=== PATIENT | female | born 1985 | race Caucasian/White ===

== ENCOUNTER → 2021-03-03 07:23 | Outpatient (CLI) | payer OTHER, SELFPAY ==
[2021-03-03 12:16] LABS: Influenza Control Positive
[2021-03-03 19:39] LABS: SARS-CoV-2 RNA PCR Negative
== END ==
PROVIDERS: PCP Internal Medicine; Visit Provider Nurse Practitioner
DX: R05 Cough (principal); Z20.822 Contact with and (suspected) exposure to COVID-19
CPT/HCPCS: 87804; C9803; U0003; U0005

== ENCOUNTER 2021-05-09 14:15 | Outpatient (RCR) | payer OTHER, SELFPAY ==
--- NOTE | 2021-04-24 12:46 | PTOPEVAL ---
Thank you for referring Hope Michelle to [facility].? The patient is scheduled to be seen for therapy? 2 x/week for 8 weeks. Please review, sign, date and return this plan of care OLIVE. I agree with and certify that the following plan of care is medically necessary. Referring Physician Date Attending Provider: Niels Gruber, Diagnosis radiculopathy, cervical Onset 2 months Additional Evaluation Detail history of OA right shoulder with therapy. Does not performing her previous HEP. Subjective Information She has been having pain in Query Text:As Reported By Patient/ the left shoulder. She has Family increased neck and shoulder pain with sleeping. Denies limitations with lifting, ADL's, driving or recreational activities as related to her neck. Reports her shoulder limits her ability to perform reaching, overhead, or daily task. She c /o radiating numbness and tingling into all fingers. She does not performing fitness routine. Recreational activities consist of fishing. Limitation with fishing with the throwing motion or reeling in a heavier fish. 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 Pain Assessment Self Report Pain Assessment Right Arm(s) Reported Pain Level 8 Pain Description Numbness,Radiating,Tingling Pain Frequency Chronic,Continuous Lowest Pain Intensity 3 Greatest Pain Intensity 8 Pain Aggravating Factors Exercise/Activity,Lifting, Prolonged Position Left Arm(s) Reported Pain Level 0 Pain Description Numbness,Radiating,Tingling Pain Frequency Continuous,Intermittent Lowest Pain Intensity 0 Greatest Pain Intensity 7 Pain Aggravating Factors Exercise/Activity,Lifting, Prolonged Position Neck Reported Pain Level 0 Pain Description Radiating,Tightness Pain Radiation Left Arm,Right Arm Pain Frequency Intermittent Greatest Pain Intensity 5 Pain Aggravating Factors Prol
[2021-05-09 14:17] VITALS: BP_SYST 170
--- NOTE | 2021-05-09 15:58 | PTOPEVAL ---
Thank you for referring Hope Michelle to [facility].? Hope has attended 5 therapy visits with an increase of her right UE symptoms. Recommend she follow up with her doctor at this time due to increase and progression of her symptoms. Will hold chart open for possible therapy visits after MRI and doctor's follow up visit. Please review, sign, date and return this plan of care OLIVE. I agree with and certify that the following plan of care is medically necessary. Referring Physician Date Attending Provider: Niels Gruber, DO Physical Therapy progress note Diagnosis radiculopathy, cervical Onset 2 months Additional Evaluation Detail She arrives to therapy with hand resting on head, due to pain. Subjective Information She continues to c/o severe Query Text:As Reported By Patient/ left shoulder pain at all Family times. Denies any pain of neck or left UE/shoulder region. 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 She must maintain hand above head with all activities including driving. She reports only mild c/o radiating numbness and tingling into right hand in the morning. States when her UE is down she has increased elbow pain and scapular pain. She sleeps with the arm overhead or on the right side. Pain improved with sleeping. She has not been working for the past 2 wks due to shoulder pain. Pain Assessment Self Report Pain Assessment Right Arm(s) Reported Pain Level 9 Pain Description Pulling,Sharp,Shooting Pain Frequency Chronic,Continuous Lowest Pain Intensity 5 Greatest Pain Intensity 10 Pain Aggravating Factors ADL's,Exercise/Activity, Lifting,Prolonged Position Pain Behaviors Anxious Left Arm(s) Reported Pain Level 0 Lowest Pain Intensity 0 Greatest Pain Intensity 0 Neck Reported Pain Level 0 Lowest Pain Intensity 0 Greatest Pain Intensity 0 Cervical and Lumbar ROM Cervical ROM Cervical Flexion
--- NOTE | 2021-06-01 08:15 | PCPTNOTE ---
Admitting Provider: Attending Provider: Niels Gruber DO Patient:Hope Michelle Date of :1985 Discharge Note Patient has not returned for any further treatments since 05/09/2021, therefore she will be discharged at this time. Patient?s initial visit was on 04/24/2021 10:00 and she had a total of 5 visits. Limited progress noted towards goals on recent update on 05/09/21. Thank you for referring this patient to [facility]. Please review, sign, date and return this discharge summary OLIVE. I have been updated about the patient's current status and I agree with discharge from the above service at this time. Referring Physician Date
== END 2021-06-01 16:45 | disposition home or self-care (01) ==
LOC: ANHPT 14:15
PROVIDERS: PCP Internal Medicine; Visit Provider Internal Medicine
DX: M54.12 Radiculopathy, cervical region (principal)
CPT/HCPCS: 97014; 97110; 97140; 97162; G0283

== ENCOUNTER 2021-05-09 15:25 | Outpatient (CLI) | payer OTHER, SELFPAY ==
--- NOTE | ~2021-05-09 | MR_ITS ---
EXAMINATION: MR cervical spine wo con DATE: 05/09/2021 16:16 INDICATION: Cervical radiculopathy. TECHNIQUE: Magnetic resonance imaging (MRI) of the cervical spine was performed without intravenous c ontrast. Sequences included sagittal T2-weighted FSE, sagittal STIR FSE, sagittal T1-weighted FSE, ax ial MERGE, and axial T2-weighted FSE. COMPARISON: Cervical spine radiographs 11/27/2017 FINDINGS: There is mild kyphosis of cervical spine. Vertebral body heights are normal. Intervertebral disc heights are normal. The spinal cord signal intensity is normal. The following disc levels are s pecifically discussed: C2-C3: The disc does not extend beyond the endplate margin. There is no uncovertebral joint osteoarth ritis. There is mild bilateral facet joint osteoarthritis. There is no neural foraminal stenosis. The re is no central canal stenosis. C3-C4: The disc does not extend beyond the endplate margin. There is no uncovertebral joint osteoarth ritis. There is mild bilateral facet joint osteoarthritis. There is no neural foraminal stenosis. The re is no central canal stenosis. C4-C5: There is a right central extrusion. There is no uncovertebral joint osteoarthritis. There is m ild bilateral facet joint osteoarthritis. There is no neural foraminal stenosis. There is mild centra l canal stenosis. C5-C6: There is a left central and foraminal zone extrusion. There is mild left uncovertebral joint o steoarthritis. There is no facet joint osteoarthritis. There is mild left neural foraminal stenosis. There is mild central canal stenosis. C6-C7: There is a right central and foraminal zone extrusion. There is no uncovertebral joint osteoar thritis. There is no facet joint osteoarthritis. There is moderate right neural foraminal stenosis. T here is mild central canal stenosis with asymmetric stenosis of right lateral recess. C7-T1: The disc does not extend beyond the endplate margin. There is no uncovertebral joint osteoarth ritis. There is mild bilateral facet joint osteoarthritis. There is mild left neural foraminal stenos is. There is no central canal stenosis. IMPRESSION: 1. Mild cervical spondylosis. Of note, an extrusion at C6-C7 causes moderate right neural foraminal s tenosis and asymmetric stenosis of right lateral recess. Reviewed, dictated and finalized at location A. IMPRESSION: 1. Mild cervical spondylosis. Of note, an extrusion at C6-C7 causes moderate ri ght neural foraminal stenosis and asymmetric stenosis of right lateral recess.
== END 2021-05-09 15:26 | disposition home or self-care (01) ==
LOC: ANHIMG 15:27
PROVIDERS: PCP Internal Medicine; Visit Provider Nurse Practitioner
DX: M47.22 Other spondylosis with radiculopathy, cervical region (principal)
CPT/HCPCS: 72141; 97110

== ENCOUNTER 2022-03-26 12:17 | Outpatient (CLI) | payer OTHER, SELFPAY ==
[2022-03-26 12:58] LABS: Hematocrit 40.5 % (37.0-47.0); Hemoglobin 13.4 g/dL (12.0-15.0)
== END 2022-03-26 12:18 | disposition home or self-care (01) ==
LOC: ANHSURGERY 12:23
PROVIDERS: PCP Internal Medicine; Visit Provider Student in an Organized Health Care Education/Training Program
DX: N92.0 Excessive and frequent menstruation with regular cycle (principal); Z01.818 Encounter for other preprocedural examination
CPT/HCPCS: 36415; 85014; 85018

== ENCOUNTER 2022-03-29 00:58 | Day surgery (SDC) | payer OTHER, SELFPAY ==
--- NOTE | 2022-03-26 10:11 | SUR.PREOP ---
Report to the Outpatient Waiting Room, entrance under the green pavilion located off [facility], at time _1100_ on date _03/29/22_. OR Time: _1:00pm___. - You and your visitor will be asked a series of questions to screen for COVID 19 for your protection. - Only one visitor is allowed at this time. - The patient visitor is requested to leave or wait in car when not with patient. - A mask is required within the hospital. Patients may have clear liquids (water, carbonated beverages, clear teas, apple juice) until 3 hours prior to surgery with a maximum of 20 ounces. - No food from midnight until time of surgery before 10:00 am - Infants may have breast milk until 4 hours before surgery, formula 6 hours prior to surgery. - Children will be allowed to drink immediately following surgery. If applicable, please bring a bottle or sippy cup to assist with drinking. Juice, water, soda, and popsicles are readily available. For infants on formula, please bring formula the day of surgery. Pacifiers are allowed. Take the following medications with a SIP of water the morning of surgery: n/a Medications to discontinue per physician n/a Date to take last dose n/a Please no make-up, nail cambodian, hairspray, perfume, deodorant, or body powder the day of surgery. No jewelry (including any body piercings) or valuables the day of surgery, leave them at home. Please take a shower or bath the night before, or the morning of, surgery with an antibacterial soap. Wear comfortable, loose fitting clothing. Children are encouraged to wear pajamas. - Jewelry must be removed prior to entering the operating room. Rings and piercings that are not removed may be cut off. - The hospital will not accept responsibility for valuables. - Please leave all valuables, including medications, at home the day of surgery. If you are going home after surgery, a licensed hack driver must drive you home. - NO public transportation without another adult. - We recommend that an adult stay with you for 24 hours following discharge. - We also recommend that you do not drive, make important decision, drink alcoholic beverages, or take any drugs that were not prescribed by your health care provider for at least 24 hours after your discharge time. For Pediatric surgeries, we recommend two adults accompany the child home (only one inside the building at this time). Follow any additional instructions given to you from your surgeon. If you or anyone in your household have experienced Covid symptoms in the past week, please notify your surgeon or the nurse liaison at the phone number below for possible testing. Telephone instructions given to __patient___and asked if any additional questions and then verbalized understanding. Patient advised to call surgeon office or pre surgery nurse liaison [phone] if any additional questions.
--- NOTE | 2022-03-29 10:43 | PM.IMHP ---
H&P: HPI History of Present Illness Date/Time: 03/29/22 10:43 Chief Complaint: abnormal uterine bleeding Narrative: 36 yo who presents for hysteroscopy, D&C, endometrial ablation for AUB. Pt has been having heavy menses. She had an IUD in place previously and continued to bleed through. She has had a bilateral tubal ligation for contraception. Pt elects for endometrial ablation. Review of Systems Cardiovascular: Cardiovascular: Denies chest pain, Denies leg edema, Denies palpitations, Denies dyspnea and Denies dyspnea on exertion Respiratory: Respiratory: Denies cough, Denies dyspnea and Denies dyspnea on exertion Gastrointestinal: Gastrointestinal: Denies abdominal pain, Denies constipation, Denies diarrhea, Denies nausea and Denies vomiting Genitourinary: Genitourinary: Denies hematuria, Denies urinary frequency, Denies dysuria, Denies pelvic pain, Denies urinary incontinence and Denies vaginal discharge Neurologic: Reports system reviewed and no additional complaints, except as documented Psychiatric: Psychiatric: Reports no additional psychiatric complaints Endocrine: Endocrine: Denies palpitations PMFSH Past Medical History Medical History Broken arm Right COVID-19 Ovarian cyst Left ovary @ age 12 Surgical History Surgical History H/O tubal ligation Family History Family History Mother Asthma Father Family history of alcoholism Sibling Family history of alcoholism Social History Social History Smoking packs per day: 1 Smoking cigarettes per day: 20.0 Years smoked: 27 Smoking pack-years: 27.00 Smoking status: Current every day smoker Tobacco type: cigarettes Alcohol intake: current Living arrangements: with family Spiritual care concerns: No Meds Home Medications and Allergies Home Medications Medication Instructions Recorded Confirmed Type No Home Medications 03/26/22 03/26/22 History Allergies Allergy/AdvReac Type Severity Reaction Status Date / Time Penicillins Allergy Unknown Vomiting Verified 03/02/21 10:32 Exam Const: General: no acute distress Eyes: EOM: EOMs intact bilaterally Neck: Neck: supple Thyroid: thyroid normal Chest: Breast/axilla inspection: normal inspection of the breasts Breast/axilla palpation: normal palpation of the breasts, normal palpation of the axillae and no axillary lymphadenopathy Resp: Effort & Inspection: normal respiratory effort Auscultation: clear to auscultation bilaterally Cardio: Rate: regular rate Rhythm: regular rhythm GI: Inspection: non-distended GI Palp: Yes Soft to palpation, No Tenderness to palpation present (GI) and No Guarding due to palpation present (GI) Auscultation: normal bowel sounds : General: No bladder normal to palpation External Female Exam: normal external appearance Speculum Exam - Vagina: normal vaginal discharge and No vaginal bleeding Speculum Exam - Cervix: nontender Bimanual exam- vagina & uterus: No bladder normal to palpation and No Cervical tenderness present OB/external & speculum: No vaginal bleeding Skin: General skin exam: normal color and no rashes or lesions noted Neuro: Cognition (Neuro): normal cognition Speech: normal speech Extrem: General: normal to inspection and no edema Psych: Mental Status: mental status grossly normal Affect: normal affect Assessment and Plan Assessment and plan (1) Abnormal uterine bleeding (AUB): Code(s): N93.9 - Abnormal uterine and vaginal bleeding, unspecified Status: Acute Assessment and Plan: 36 yo with AUB failed medical management plan for hysteroscopy, D&C, endometrial ablation
--- NOTE | 2022-03-29 10:46 | WPDHPUPDATE1 ---
History and Physical Update Update Date/Time: 03/29/22 10:46 History and Physical has been reviewed, including an updated exam of the patient. There are NO changes in the patient's condition. Risks, benefits, and alternatives have been discussed and questions answered. Patient agrees to proceed with procedure.
[2022-03-29] MEDS: ACETAMINOPHEN 500 MG TABLET 1000 MG PO (11:15)
[2022-03-29 11:27] VITALS: BP 107/53; PULSE 72; RESP 16; TEMP 36.8; O2SAT 99
[2022-03-29] MEDS: LACTATED RINGERS 1,000 ML 30 ML IV CONT (11:45)
--- NOTE | 2022-03-29 12:14 | WPDANESEPPF ---
Anes - Initial Pre Proc Eval Procedure: Operation Date: 03/29/22 13:00 Proposed Procedures p Hysteroscopy Dilation and Curettage with Kaley Endometrial Ablation - Durga Melendez MD Date/Time: 03/29/22 12:14 Surgeon: Durga Melendez MD Pre Op Diagnosis: Heavy Bleeding Patient Data Age: 36 Gender: F Height: 1.68 m Weight: 57 kg Last Vital Signs Temp 36.8 C 03/29/22 11:27 Pulse 72 03/29/22 11:27 Resp 16 03/29/22 11:27 BP 107/53 L 03/29/22 11:27 Pulse Ox 99 03/29/22 11:27 Allergies Allergy/AdvReac Type Severity Reaction Status Date / Time Penicillins Allergy Unknown Vomiting Verified 03/29/22 11:11 Home Medications Medication Instructions Recorded Confirmed Type No Home Medications 03/26/22 03/29/22 History Patient hx anesthesia problems: none Family hx anesthesia problems: none Results Review: All pre-operative results and documents have been reviewed as part of the pre-operative evaluation. [facility] Past Medical History Medical History Anxiety Depression Surgical History Surgical History H/O tubal ligation Family History Family History Mother Asthma Father Family history of alcoholism Sibling Family history of alcoholism Social History Social History Smoking packs per day: 1 Smoking cigarettes per day: 20.0 Years smoked: 27 Smoking pack-years: 27.00 Smoking status: Current every day smoker Tobacco type: cigarettes Alcohol intake: current Living arrangements: with family Spiritual care concerns: No Anes - Eval Final PreProcedure Day of Procedure 03/29/22 12:14 Patient weight: normal Heart: regular rate and rhythm Lungs: decreased breath sounds Airway: Mallampati scale class II Neurological: alert and oriented Last oral intake: >/= 8 hours ASA classification: III Emergent: no Anesthetic plan: proceed Anesthesia type and monitoring: general GIVS and standard monitoring Results Review: All pre-operative results and documents have been reviewed as part of the pre-operative evaluation. Informed Consent: The patient's anesthetic plan and its attendant risks and benefits were discussed with the patient/family/POA. Questions were solicited and answers provided to the satisfaction of the patient/family/POA.
[2022-03-29] MEDS: LIDOCAINE HCL 1% PF 30 ML VIAL INFILTRATE (13:10)
[2022-03-29 13:16] VITALS: BP 110/70; PULSE 75; RESP 16
--- NOTE | 2022-03-29 13:16 | W.PM.PROC2 ---
Procedure Note - Detailed Date of Procedure 03/29/22 Pre-op Diagnosis Heavy Bleeding Post-op Diagnosis Same Procedure Performed paracervical block hysteroscopy dilation & curettage endometrial ablation Surgeon Durga Melendez MD Anesthesia MAC Indications abnormal uterine bleeding Findings normal appearing intrauterine cavity. Normal tubal ostia bilaterally Description of Procedure Hope Michelle presents for hysteroscopy, D&C, endometrial ablation for AUB. She was counseled as to the indications, risks, benefits, and alternatives to surgery, with the risks including bleeding, infection, damage to surrounding organs, VTE, and complications of anesthesia. Her verbal and written consent was obtained. PROCEDURE: The patient was taken to the OR and general anesthesia induced. She was prepped and draped in Tejas stirrups with support of the back and bilateral lower extremities. I/O catheterization performed of the bladder. The above findings were noted. Infiltration with 1% lidocaine at the 3 and 9 o'clock cervical positions was performed. A single tooth tenaculum was placed on the anterior lip of the cervix. The uterus sounded to 8 cm. The cervix was dilated with sequential Lois dilators. Hysteroscopy, using a normal saline medium, was performed and showed the above findings. Sharp uterine curettage was then performed and tissue placed on Telfa. The Kaley device was set to a depth of 5 cm. The device was inserted into the uterus and deployed. Good fit was reassured by the device indicator. The cervical balloon was insufflated to ensure a good seal. Uterine integrity test was performed by the Kaley device and was successful. The device was then activated. The entire ablation procedure lasted 120 seconds. The cervical balloon was desufflated and the device was removed from the uterus. The hysteroscope was re-introduced to ensure adequate tissue ablation. The tenaculum was removed and hemostasis was observed. The patient tolerated the procedure well. Sponge, lap, and needle counts were correct. The fluid deficit was noted to be 100 mL. The patient was taken to the recovery room in stable condition. Estimated Blood Loss 50 Urine Output 25 Drains No Packing No Pathology Yes (endometrial curettings ) Complications No immediate complications Condition Stable Disposition PACU
[2022-03-29 13:45] VITALS: BP 120/72; PULSE 72; RESP 16
[2022-03-29] MEDS: oxyCODONE HCL (*CRX) 5 MG TAB IR PO (14:10)
[2022-03-29 14:15] VITALS: BP 113/70; PULSE 70; RESP 16
[2022-03-29 14:30] VITALS: BP 117/72; PULSE 68; RESP 20
== END 2022-03-29 14:37 | disposition home or self-care (01) ==
PROVIDERS: PCP Internal Medicine; Visit Provider Student in an Organized Health Care Education/Training Program
PROC: 0U5B8ZZ Destruction of Endometrium, Via Natural or Artificial Opening Endoscopic (ICD-10-PCS; CPT 58563; principal; 2022-03-29 13:00)
DX: N93.9 Abnormal uterine and vaginal bleeding, unspecified (principal); N71.1 Chronic inflammatory disease of uterus; F17.210 Nicotine dependence, cigarettes, uncomplicated
CPT/HCPCS: 58563; 88305; A9270; J1100; J1885; J2250; J2405; J2704; J3010; J7120

== ENCOUNTER 2022-09-05 12:36 | Outpatient (CLI) | payer OTHER, SELFPAY ==
[2022-09-05 18:41] LABS: Basophils Absolute Auto 0.1 K/mm3 (0.0-0.1); Basophils Percent Auto 0.6 % (0.2-1.2); Eosinophils Absolute Auto 0.2 K/mm3 (0-0.3); Eosinophils Percent Auto 1.7 % (0-4.4); Hematocrit 49.3 % (37.0-47.0); Hemoglobin 15.8 g/dL (12.0-15.0); Immature Granulocyte Absolute 0.03 K/mm3 (0.00-0.031); Immature Granulocyte Percent A 0.3 % (0-0.5); Lymphocytes Absolute Auto 1.87 K/mm3 (0.9-3.2); Lymphocytes Percent Auto 18.9 % (18.3-44.2); Mean Corpuscular Hemoglobin 32.4 pg (26-34); Mean Corpuscular Volume 101.2 fl (80-100); Mean Platelet Volume 9.9 fl (7.4-10.4); Monocytes Absolute Auto 0.9 K/mm3 (0.1-0.6); Monocytes Percent Auto 8.9 % (2.6-8.5); Neutrophils Absolute Auto 6.9 K/mm3 (1.3-6.7); Neutrophils Percent Auto 69.6 % (45.5-73.1); Platelet Count Result 260 k/mm3 (150-375); Red Blood Count 4.87 M/mm3 (4.2-5.4); Red Cell Distribution Width 14.2 % (11.5-14.5); White Blood Count 9.9 K/mm3 (4.5-10.0)
[2022-09-05 18:46] LABS: Alanine Aminotransferase 20 U/L (6-35); Albumin Level 4.6 g/dL (3.5-5.1); Alkaline Phosphatase 58 U/L (38-126); Anion Gap 10 mmol/L (8-16); Aspartate Amino Transferase 30 U/L (14-36); Bilirubin,Total 0.6 mg/dL (0.2-1.3); Blood Urea Nitrogen 14 mg/dL (7-17); Calcium 9.1 mg/dL (8.4-10.2); Carbon Dioxide 24 mmol/L (22-30); Chloride 103 mmol/L (98-107); Estimated Glomerular Filt Rate > 60; Glucose 95 mg/dL (65-110); Potassium 4.5 mmol/L (3.4-5.0); Sodium 137 mmol/L (137-145)
== END 2022-09-05 12:37 | disposition home or self-care (01) ==
LOC: ANHGOSHLAB 12:40
PROVIDERS: PCP Internal Medicine; Visit Provider Clinical Nurse Specialist
DX: Z13.29 Encounter for screening for other suspected endocrine disorder (principal); E55.9 Vitamin D deficiency, unspecified; F41.9 Anxiety disorder, unspecified
CPT/HCPCS: 36415; 80053; 82306; 84443; 85025

== ENCOUNTER 2022-11-09 06:40 | Outpatient (CLI) | payer OTHER, SELFPAY ==
--- NOTE | ~2022-11-09 | MR_ITS ---
EXAMINATION: MR abdomen wo/w con DATE: 11/09/2022 08:19 INDICATION: Pancreatic lesion. TECHNIQUE: Magnetic resonance imaging (MRI) of the abdomen was performed without and with 11 mL Multi Sera intravenous contrast. COMPARISON: CT abdomen and pelvis 05/08/2012 FINDINGS: The liver, gallbladder, spleen, pancreas, adrenal glands, and right kidney are normal. There is an 8 mm cyst in left kidney. There are no dilated loops of bowel. There are no pathologically enlarged lym ph nodes. There is no free intraperitoneal fluid. IMPRESSION: 1. Normal pancreas. Reviewed, dictated and finalized at location A. OWS SERVER SUPPORT TECHNICIAN IMPRESSION: 1. Normal pancreas.
== END 2022-11-09 06:41 | disposition home or self-care (01) ==
PROVIDERS: PCP Internal Medicine; Visit Provider Nurse Practitioner
DX: K86.9 Disease of pancreas, unspecified (principal)
CPT/HCPCS: 74183; A9577

== ENCOUNTER 2023-11-02 13:02 | Emergency (ER) | payer OTHER, SELFPAY ==
[2023-11-02 13:03] VITALS: BP 125/90; PULSE 88; RESP 16; TEMP 36.8; O2SAT 97
--- NOTE | 2023-11-02 13:43 | ED.GENADULT ---
HPI - General Adult General Chief complaint: Skin/Abscess/Foreign Body Stated complaint: rash Time Seen by Provider: 11/02/23 13:18 History of Present Illness HPI narrative: 37-year-old female presenting to the emergency department for evaluation of a persistent itching rash. Patient was evaluated at the urgent care and was diagnosed with an allergic reaction. Patient was given a steroid injection a left hip and she was also started on prednisone and famotidine. Patient states she is still having persistent itching. Patient has an excoriated rash on her chest arms and upper back. Patient has no prior history of allergic reactions and patient states she has had no new medications, no new detergents no perfumes. Related Data Allergies Allergy/AdvReac Type Severity Reaction Status Date / Time Penicillins Allergy Unknown Vomiting Verified 09/05/22 11:34 Review of Systems Review of Systems: All systems reviewed & are unremarkable except as noted in HPI and below PMFSH Past Medical History Medical History Anxiety Depression Pancreatic lesion Pulmonary nodule Tobacco abuse Surgical History Surgical History H/O tubal ligation Family History Family History Mother Asthma Father Family history of alcoholism Sibling Family history of alcoholism Social History Social History Smoking packs per day: 1 Smoking cigarettes per day: 20.0 Years smoked: 27 Smoking pack-years: 27.00 Smoking status: Current every day smoker Tobacco type: cigarettes Alcohol intake: current Living arrangements: with family Spiritual care concerns: No Exam Narrative: APPEARANCE: Well appearing, no pain, no distress, well-nourished. HEAD: normocephalic, atraumatic. EYES: PERRLA/EOMI, conjunctivae clear. NOSE: Normal no drainage EARS:TMS clear with good light reflex. THROAT: Pharynx clear, no exudate. NECK: Supple. No adenopathy, no masses. RESPIRATORY: Airway patent, respirations nonlabored. Clear to auscultation bilaterally, no rales, rhonchi, wheezing. CARDIOVASCULAR: Regular rate and rhythm without murmurs rubs or gallops. ABDOMINAL: Soft, nontender, nondistended, normal bowel sounds MUSCULOSKELETAL: Moves all extremities. Strength/ROM intact, No edema, No calf tenderness. NEURO: Alert. Cranial nerves II through XII intact. grossly intact SKIN: excoriated rash on arms chest back and legs. No rash at the belt line or intravenous areas. No vesicular rash. Course Course Emergency Course: 37-year-old female presenting ED for evaluation of persistent rash. patient will be restarted on a Medrol Dosepak. Patient was encouraged to take Claritin or Zyrtec for an antihistamine. Patient is also advised to try Vaseline and to quit scratching to the point of excoriation. Vital Signs Vital signs: Vital Signs Temperature 98.2 F 11/02/23 13:03 Pulse Rate 88 11/02/23 13:03 Respiratory Rate 16 11/02/23 13:03 Blood Pressure 125/90 11/02/23 13:03 Pulse Oximetry 97 11/02/23 13:03 Temperature 98.2 F 11/02/23 13:03 Pulse Rate 88 11/02/23 13:03 Respiratory Rate 16 11/02/23 13:03 Blood Pressure 125/90 11/02/23 13:03 Pulse Oximetry 97 11/02/23 13:03 Medical Decision Making Vital Signs Vital Signs: Vital Signs Temperature 98.2 F 11/02/23 13:03 Pulse Rate 88 11/02/23 13:03 Respiratory Rate 16 11/02/23 13:03 Blood Pressure 125/90 11/02/23 13:03 Pulse Oximetry 97 11/02/23 13:03 Temperature 98.2 F 11/02/23 13:03 Pulse Rate 88 11/02/23 13:03 Respiratory Rate 16 11/02/23 13:03 Blood Pressure 125/90 11/02/23 13:03 Pulse Oximetry 97 11/02/23 13:03 Discharge Plan Discharge Clinical Impression: Allergic reaction
== END 2023-11-02 14:00 | disposition home or self-care (01) ==
PROVIDERS: Emergency Provider Emergency Medicine; PCP Internal Medicine
DX: T78.40XA Allergy, unspecified, initial encounter (principal); R21 Rash and other nonspecific skin eruption; F17.210 Nicotine dependence, cigarettes, uncomplicated; F41.9 Anxiety disorder, unspecified; F32.A Depression, unspecified; X58.XXXA Exposure to other specified factors, initial encounter
CPT/HCPCS: 99283

== ENCOUNTER 2024-02-17 01:39 | Emergency (ER) | payer OTHER, SELFPAY ==
[2024-02-17] VITALS (7 sets, daily range): BP systolic 118–127; BP diastolic 60–77; PULSE 89–107; RESP 12–18; TEMP 36.8–37.3; O2SAT 98–100
--- NOTE | ~2024-02-17 | XR_ITS ---
EXAMINATION: XR chest 2V DATE: 02/17/2024 02:22 INDICATION: Chest pain. Cough. Fever. TECHNIQUE: Frontal and lateral views of the chest were obtained. COMPARISON: None. FINDINGS: There are airspace opacities in left lower lung zone. There is mild scarring at the lung ap ices. No pleural effusion or pneumothorax. The heart size is normal. IMPRESSION: 1. Airspace opacities in left lower lung zone, consistent with pneumonia. Reviewed, dictated and finalized at location A.
--- NOTE | 2024-02-17 01:41 | ECG_ITS ---
Measurements Intervals [place] Rate: 106 P: 75 NM: 97 QRS: 101 QRSD: 91 T: -25 QT: 319 QTc: 424 Interpretive Statements SINUS TACHYCARDIA WITH SHORT NM INTERVAL SUSPECT ARM LEAD REVERSAL NONSPECIFIC ST & T-WAVE ABNORMALITY NO PREVIOUS ECG AVAILABLE FOR COMPARISON Electronically Signed On 02-17-2024 13:01:45 CDT by Ochoa Lam M.D.
[2024-02-17 02:08] LABS: Basophils Percent Auto 0.2 % (0.2-1.2); Eosinophils Absolute Auto 0.1 K/mm3 (0-0.3); Eosinophils Percent Auto 0.3 % (0-4.4); Hematocrit 41.6 % (37.0-47.0); Immature Granulocyte Absolute 0.07 K/mm3 (0.00-0.031); Immature Granulocyte Percent A 0.4 % (0-0.5); Lymphocytes Percent Auto 5.2 % (18.3-44.2); Mean Corpuscular HGB Conc 33.7 g/dl (32-36); Mean Corpuscular Hemoglobin 31.1 pg (26-34); Mean Corpuscular Volume 92.4 fl (80-100); Monocytes Absolute Auto 0.9 K/mm3 (0.1-0.6); Monocytes Percent Auto 4.5 % (2.6-8.5); Neutrophils Absolute Auto 17.2 K/mm3 (1.3-6.7); Neutrophils Percent Auto 89.4 % (45.5-73.1); Platelet Count Result 246 k/mm3 (150-375); Red Cell Distribution Width 13.7 % (11.5-14.5); White Blood Count 19.2 K/mm3 (4.5-10.0)
[2024-02-17 02:19] LABS: Prothrombin Time 13.8 Seconds (11.1-14.7)
[2024-02-17 02:40] LABS: Alanine Aminotransferase 14 U/L (6-35); Albumin Level 3.9 g/dL (3.5-5.1); Alkaline Phosphatase 99 U/L (38-126); Anion Gap 10 mmol/L (4-12); Aspartate Amino Transferase 25 U/L (14-36); Bilirubin,Total 1.2 mg/dL (0.2-1.3); Blood Urea Nitrogen 15 mg/dL (7-17); Calcium 8.8 mg/dL (8.4-10.2); Carbon Dioxide 21 mmol/L (22-30); Chloride 103 mmol/L (98-107); Estimated CRCL calculation 87 ml/min; Estimated Glomerular Filt Rate > 60; Glucose 184 mg/dL (65-110); Lipase 37 U/L (23-300); Potassium 3.4 mmol/L (3.4-5.0); Sodium 134 mmol/L (137-145)
[2024-02-17 02:43] LABS: Influenza A QL RT-PCR Negative (Negative); Influenza B QL RT-PCR Negative (Negative); RSV RNA, RT-PCR Negative (Negative); SARS-CoV-2 RNA PCR Negative (Negative)
[2024-02-17 02:52] LABS: Troponin I < 0.012 ng/mL (0.000-0.034)
--- NOTE | 2024-02-17 04:25 | ECG_ITS ---
Measurements Intervals [place] Rate: 94 P: 6 TX: 105 QRS: 97 QRSD: 88 T: 15 QT: 338 QTc: 424 Interpretive Statements SINUS RHYTHM WITH SHORT TX INTERVAL BORDERLINE RIGHT AXIS DEVIATION [QRS AXIS > 90] COMPARED TO ECG 02/17/2024 01:53:37 SINUS RHYTHM NOW PRESENT COMPARED WITH EARLIER TODAY WITH T-WAVE ABNORMALITY HAS IMPROVED Electronically Signed On 02-17-2024 13:05:43 CDT by Ochoa Lam M.D.
[2024-02-17] MEDS: guaiFENesin/DEXTROMETHORPHAN 10 ML UDC PO (04:49)
[2024-02-17] MEDS: DOXYCYCLINE HYCLATE 100 MG TABLET PO (04:49)
--- NOTE | 2024-02-17 05:25 | ED.GENADULT ---
HPI - General Adult General Chief complaint: Chest Pain Stated complaint: cp, cough, headache, fever Time Seen by Provider: 02/17/24 03:27 History of Present Illness HPI narrative: This is a 38-year-old female presenting ED with chief complaint of shortness of breath. Patient also had a cough and fevers of 100.6. Patient has a history of pneumonia. She has chest pain in center of her chest when she coughs. It is worse with palpation. Patient denies nausea vomiting or diarrhea. No abdominal pain. No lower extremity edema. Related Data Allergies Allergy/AdvReac Type Severity Reaction Status Date / Time Penicillins Allergy Unknown Vomiting Verified 09/05/22 11:34 [facility] Past Medical History Medical History Anxiety Depression Pancreatic lesion Pulmonary nodule Tobacco abuse Surgical History Surgical History H/O tubal ligation Family History Family History Mother Asthma Father Family history of alcoholism Sibling Family history of alcoholism Social History Social History Smoking packs per day: 1 Smoking cigarettes per day: 20.0 Years smoked: 27 Smoking pack-years: 27.00 Smoking status: Current every day smoker Tobacco type: cigarettes Alcohol intake: current Living arrangements: with family Spiritual care concerns: No Exam Narrative: APPEARANCE: No apparent distress. Head: atraumatic. EYES: EOMI, NOSE: Atraumatic NECK: Trachea midline RESPIRATORY: Tachypneic, scattered rhonchi in the left lower CARDIOVASCULAR: RRR, no peripheral edema ABDOMINAL: Non-distended soft nontender MUSCULOSKELETAl: No obvious deformities NEURO: Alert. Moving 4/4 extremities SKIN:: Warm, dry. Normal color PSYCHIATRIC: Normal affect Course Vital Signs Vital signs: Vital Signs Temperature 98.3 F 02/17/24 01:41 Pulse Rate 107 H 02/17/24 01:41 Respiratory Rate 18 02/17/24 01:41 Blood Pressure 119/60 02/17/24 01:41 Pulse Oximetry 100 02/17/24 01:41 Oxygen Delivery Room Air 02/17/24 01:41 Temperature 99.1 F 02/17/24 03:37 Pulse Rate 98 02/17/24 04:49 Respiratory Rate 15 02/17/24 04:49 Blood Pressure 127/75 02/17/24 04:49 Pulse Oximetry 98 02/17/24 04:49 Oxygen Delivery Room Air 02/17/24 03:35 Medical Decision Making MDM Narrative Medical decision making narrative: -Course: 38-year-old female presenting with fevers cough shortness of breath. Chest x-ray shows left lower lobe pneumonia. White count 19.2. Vital signs stable and not requiring any supplemental oxygen. Given first dose of Augmentin and doxycycline. Patient candidate for outpatient management. Patient has follow-up with her primary care physician tomorrow. Given return precautions. 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 Labs reviewed within normal limits. Viral swabs negative Chest x-ray showed a left lower lobe pneumonia Independent EKG interpretation: Rhythm [sinus], Rate [94], [place] -[normal], ID -[normal], QRS [narrow], QTC [normal], T waves -[negative for concerning inversions], ST Segments - [Negative for concerning elevations] Final interpretations: [Normal Sinus Rhythm] -Interventions: Augmentin, doxycycline, Robitussin -Shared decision making / Disposition: Discharge -RX Augmentin, doxycycline Vital Signs Vital Signs: Vital Signs Temperature 98.3 F 02/17/24 01:41 Pulse Rate 107 H 02/17/24 01:41 Respiratory Rate 18 02/17/24 01:41 Blood Pressure 119/60 02/17/24 01:41 Pulse Oximetry 100 02/17/24 01:41 Oxygen Delivery Room Air
[2024-02-17 05:28] LABS: Troponin I < 0.012 ng/mL (0.000-0.034)
== END 2024-02-17 06:32 | disposition home or self-care (01) ==
PROVIDERS: Emergency Provider Emergency Medicine; PCP Internal Medicine
DX: J18.9 Pneumonia, unspecified organism (principal); Z20.822 Contact with and (suspected) exposure to COVID-19; F17.210 Nicotine dependence, cigarettes, uncomplicated; R00.0 Tachycardia, unspecified; R94.31 Abnormal electrocardiogram [ECG] [EKG]
CPT/HCPCS: 36415; 71046; 80053; 83690; 84484; 85025; 85610; 85730; 87637; 93005; 99284; A9270

== ENCOUNTER 2024-03-30 17:00 | Outpatient (CLI) | payer OTHER, SELFPAY ==
--- NOTE | ~2024-03-30 | CT_ITS ---
CT Scan of the Chest without Contrast: Clinical Indication: Solitary pulmonary nodule Technique: Contiguous sections were acquired throughout the chest without intravenous contrast. Dose reduction technique was used on this scan by utilizing automated exposure control and iterative recon struction technique. The dose-length product (DLP) was 69.96 mGy-cm. Findings: There is no evidence of any significant mediastinal, hilar or axillary lymphadenopathy. The mediastin al soft tissues appear normal. There is no evidence of pleural or pericardial effusion. There is biapical scarring. Left upper lobe pulmonary cyst present. Images through the upper abdomen reveal no abnormalities. Impression: Biapical scarring. Left upper lobe pulmonary cyst. No suspicious pulmonary nodule seen. Reviewed, dictated and finalized at location . Impression: Biapical scarring. Left upper lobe pulmonary cyst. No suspicious pulmonary nodu le seen.
== END 2024-03-30 17:01 | disposition home or self-care (01) ==
LOC: ANHIMG 17:00
PROVIDERS: PCP Internal Medicine; Visit Provider Nurse Practitioner
DX: R91.1 Solitary pulmonary nodule (principal)
CPT/HCPCS: 71250

== ENCOUNTER 2024-05-24 08:03 | Outpatient (CLI) | payer OTHER, SELFPAY ==
--- NOTE | ~2024-05-24 | MR_ITS ---
EXAMINATION: MR cervical spine wo con DATE: 05/24/2024 10:28 INDICATION: Cervical radiculopathy. TECHNIQUE: Magnetic resonance imaging (MRI) of the cervical spine was performed without intravenous c ontrast. COMPARISON: Cervical spine MRI 05/09/2021 FINDINGS: There is 3 degrees levocurvature of cervical spine. Vertebral body heights are normal. Ther e is mildly decreased disc height at C5-C6 and C6-C7. The spinal cord signal intensity is normal. The following disc levels are specifically discussed: C2-C3: The disc does not extend beyond the endplate margin. There is no uncovertebral joint osteoarth ritis. There is moderate right and mild left facet joint osteoarthritis. There is no neural foraminal stenosis. There is no central canal stenosis. C3-C4: There is a central extrusion. There is no uncovertebral joint osteoarthritis. There is mild bi lateral facet joint osteoarthritis. There is no neural foraminal stenosis. There is mild central sri l stenosis. C4-C5: There is a central extrusion. There is mild bilateral uncovertebral joint osteoarthritis. Ther e is severe bilateral facet joint osteoarthritis. There is mild bilateral neural foraminal stenosis. There is mild central canal stenosis. There is moderate stenosis of right lateral recess. C5-C6: The disc is bulging and has an annular fissure. There is moderate right and severe left uncove rtebral joint osteoarthritis. There is severe bilateral facet joint osteoarthritis. There is mild bo ateral neural foraminal stenosis. There is mild central canal stenosis. C6-C7: The disc is bulging. There is severe bilateral uncovertebral joint osteoarthritis. There is mo derate bilateral facet joint osteoarthritis. There is mild bilateral neural foraminal stenosis. There is mild central canal stenosis. C7-T1: The disc does not extend beyond the endplate margin. There is mild right uncovertebral joint o steoarthritis. There is mild right and mild left facet joint osteoarthritis. There is mild bilateral neural foraminal stenosis. There is no central canal stenosis. IMPRESSION: 1. Mild cervical spondylosis, worsened from 05/09/2021. Reviewed, dictated and finalized at location E.
== END 2024-05-24 08:04 | disposition home or self-care (01) ==
LOC: ANHIMG 09:35
PROVIDERS: PCP Internal Medicine; Visit Provider Clinical Nurse Specialist
DX: M43.02 Spondylolysis, cervical region (principal)
CPT/HCPCS: 72141

== ENCOUNTER 2025-04-20 15:04 | Outpatient (CLI) | payer OTHER, SELFPAY ==
--- NOTE | ~2025-04-20 | XR_ITS ---
XR knee RT 3V 04/20/2025 15:21 Indication: Right knee pain for 3 months Procedure: 3 views right knee Comparison: No prior studies for comparison. Findings: No fracture, subluxation or dislocation. No significant joint effusion. No foreign bodies. Impression: 1: No significant bone or joint abnormality. Reviewed, dictated and finalized at location A. Impression: 1: No significant bone or joint abnormality.
--- OUTSIDE RECORDS SUMMARY | 2025-04-20 15:09 | XMS_ITS | Clinical Summary ---
Author Organization [facility] Address [address] [place] [phone] Phone Care Team Providers Care Stencil Cutter Name Role Phone Niels Gruber Primary Care Provider Allergies Active Allergy Reactions Criticality Noted Date Comments Penicillins Nausea and Vomiting Low 08/24/2012 Medications HYDROcodone-sen taminophen (NORCO) 5-325 mg Oral tablet Take 1 Tab by mouth every 4 hours as needed. Active oxyCODONE-aceta minophen (PERCOCET) 5-325 mg Oral tablet Take 1 Tab by mouth every 6 hours as needed for Pain, Moderate. 20 Tab None 08/25/2012 Active predniSONE (DELTASONE) 10 mg tablet Take 4 Tablets (40 mg) by mouth daily/ decrease dose by 1 tablet every three days. 30 Tablet 03/10/2017 Active Active Problems Problem Noted Date Diagnosed Date Skin ulcer of right knee, limited to breakdown o f skin 03/08/2017 Pneumonia 03/08/2017 Tobacco use 03/08/2017 Abscess of right lower extremity 03/08/2017 Cervicitis 08/25/2012 Pelvic pain in female 08/25/2012 Abscess of right knee Cellulitis of right lower extremity Failure of outpatient treatment Gastritis Abnormal CT of the chest Family History Medical History Relation Name Comments Healthy Father Asthma Mother Relation Name Status Comments Father Alive Mother Alive Social History Tobacco Use Types Packs/Day Years Used Date Smoking Tobacco: Every Day Cigarettes Tobacco Cessation:Ready to Q uit: No Alcohol Use Standard Drinks/Week Comments No 0 (1 standard drink = 0.6 oz pur e alcohol) occ. Comments No Sex and Gender Information Value Date Recorded Sex Assigned at Female 11/07/2024 1:[address] Legal Sex Female 3:[address] Gender Identity Female 11/07/2024 1:[address] Sexual Orientation Straight 11/07/2024 1: [address] Last Filed Vital Signs Vital Sign Reading Time Taken Comments Blood Pressure 129/82 04/27/2022 8:57 AM CDT Pulse 66 04/27/2022 8:57 AM CDT Temperature 36.8 C (98.2 F) 04/27/2022 8:57 AM CDT Respiratory Rate 16 04/27/2022 8:57 AM CDT Oxygen Saturation 98% 04/27/2022 8:57 AM CDT Inhaled Oxygen Concentration - - Weight 56.2 kg (124 lb) 04/27/2022 8:26 AM CDT Height 167.6 cm (5' 6) 04/27/2022 8:26 AM CDT Body Mass Index 20.01 04/27/2022 8:26 AM CDT Plan of Treatment Health Maintenance Due Date Last Done Comments DTAP/TDAP/TD VACCINES (1 - Tdap) 2002 HEPATITIS B VACCINES (1 of 3 - 19+ 3-dose series) 2002 HPV/Cotest (21-29) 2004 CERVICAL CANCER SCREENING 2013 HPV/Cotest (30-65) 2013 PAP SMEAR 2013 BREAST CANCER SCREENING 2023 INFLUENZA VACCINE (#1) 2024 HPV VACCINES Aged Out No longer eligi ble based on patient's age to complete this topic Insurance [employer] [place] [facility] [employer] (INTERNAL) [facility] Advance Directives For more information, please contact: [phone] * Full Code (Latest Code Status on File) Date Activated Date Inactivated Comments 03/08/2017 4:39 AM 03/10/2017 7:09 PM Care Teams Stencil Cutter Relationship Specialty Start Date End Date Niels Gruber DO PCP - General Internal Medicine 03/08/17
--- OUTSIDE RECORDS SUMMARY | 2025-04-20 15:09 | XMS_ITS | Encounter Summary ---
Author Organization [facility] Address [address] [place] [address] Care Team Providers Care Assurance Manager Insurance Name Role Phone Niels Gruber DO Primary Care Provider [phone] Ozzy Valdez MD Unavailable [phone] Encounter Details Date Type Department Care Team (Late st Contact Info) Description 09/02/2024 Telephone [facility] [place] [facility] [address] [facility] [address] [place] [address] Ozzy Valdez MD [address] [facility] [address] [place] [address] Social History Tobacco Use Types Packs/Day Years Used Date Smoking Tobacco: Every Day Cigarettes Alcohol Use Standard Drinks/Week Comments Yes 0 (1 standard drink = 0.6 oz pur e alcohol) occasional AUDIT-C Answer Date Recorded Q1: How often do you have a drink containing alc ohol? Monthly or less 09/01/2024 Q2: How many drinks containi ng alcohol do you have on a typical day when you are drinking? 1 or 2 09/01/2024 Q3: How often do you have si x or more drinks on one occasion? Never 09/01/2024 Hunger Vital Sign Answer Date Recorded Within the past 12 months, y ou worried that your food would run out before you got the money to buy more. Never true 09/01/20 24 Within the past 12 months, t he food you bought just didn't last and you didn't have money to get more. Never true 09/01/2024 Comments No Sex and Gender Information Value Date Recorded Sex Assigned at Not on file Legal Sex Female 3:05 AM MECHANICS HANDYMAN Gender Identity Female 09/06/2024 12:51 PM CDT Sexual Orientation Straight 09/06/2024 12 :51 PM CDT documented as of this encounter Plan of Treatment Not on file documented as of this encounter Goals Goal Patient Goal Type Associated Problems Recent Progress Patient-Stated? Author CCM Chronic Pain Care Plan Chronic Care Management Worsening( 1:01 PM MECHANICS HANDYMAN) No Padmini Yarbrough, RN Note: Problem: Chronic Pain Goals: 1. Minimize further functional decline 2. Maximize quality of life 3. Control pain Strategies: - Activity/exercise program recommendation - Conservative stepwise pain medicine strategy with multi-disciplinary approach - Recommend healthy lifestyle strategies and compensatory methods as needed documented as of this encounter Visit Diagnoses Not on filedocumented in this encounter Care Teams Assurance Manager Insurance Relationship Specialty Start Date End Date Niels Gruber DO PCP - General 03/01/21 Ozzy Valdez MD [address] [place] [address] Consulting Physician Pain Management 12/21/24 documented as of this encounter
--- OUTSIDE RECORDS SUMMARY | 2025-04-20 15:09 | XMS_ITS | Patient Health Record ---
Author Organization [facility] Address [address] [place] [address] Care Team Providers Care Jboss Architect Name Role Phone Jeramie Philip Primary Care Provider [phone] Allergies Allergen (clinical drug ingredient) Drug/Non Drug Allergy documented on EMR Reaction Allergy Type Onset Date Status Penicillin Unknown Drug Allergy Active Reason For Referral No Information Medications Medication SIG (Take, Route, Frequency, Duration) Notes Start Date End Date Status Remeron 15 MG 1 tablet at bedtime Orally Once a day for 30 day(s) 12/25/2022 Active traZODone HCl Not-Ta eben Wellbutrin XL 300 MG 1 tablet Orally Onc e a day for 30 days Active Vistaril 25 MG 1 capsule twice a da y as needed orally twice daily as needed for 30 days Active Social History Tobacco Use: Social History Observation Description Date Details (start date - stop date) Current Smoker NA - NA Sex Assigned At : Social History Observation Description Sex Assigned At Female Dont use, Tobacco Use/Smoking Question Answer Notes Are you a current smoker Problems Problem Type SNOMED Code ICD Code Onset Dates Problem Status W/U Status Risk Notes Problem Major depression (666254527) Major depression (F32.9) Active confirmed Problem Alcohol abuse (48513585) AA (alcohol abuse) (F10.10) Active confirmed Plan Of Treatment Pending Test Test Name Order Date 12 Panel Urine Drug Screen 12/04/2022 Insurance Providers Payer Name Payer Address Payer Phone Subscriber Number Group Number Insured Name Patient Relationship to Insured Coverage Start Date Coverage End Date [facility] [address] [place] [phone] [id number] Hope Michelle Self - patient is the insured 3 Medications Administered Medication Instructions Date of Administration Dosage Notes Vivitrol 12/04/2022 380 mg [facility]. Vivitrol 01/02/2023 380 mg [facility]. Medical (General) History Surgical History Surgery Date(Month/Year) Tubal ligation Cyst removed from left ovary Endometrial Ablation
--- OUTSIDE RECORDS SUMMARY | 2025-04-20 15:10 | XMS_ITS | Encounter Summary ---
Author Organization [facility] Address [address] [place] [address] Care Team Providers Care Ethylbenzene Converter Helper Name Role Phone Niels Gruber DO Primary Care Provider Encounter Details Date Type Department Care Team (Latest Contact Info) Description 07/29/2001 Inpatient Historical [facility] PATIENT IN A BED Jose Maria Melendez MD [address] [address] Premature rupture of membranes in , delivered (Primary Dx) Social History Tobacco Use Types Packs/Day Years Used Date Smoking Tobacco: Never Assessed Comments Unknown Sex and Gender Information Value Date Recorded Sex Assigned at Female 11/07/2024 1:55 AM HEALTH ADMINISTRATOR Legal Sex Female 3:15 AM HEALTH ADMINISTRATOR Gender Identity Female 11/07/2024 1:55 AM HEALTH ADMINISTRATOR Sexual Orientation Straight 11/07/2024 1: 55 AM HEALTH ADMINISTRATOR documented as of this encounter Plan of Treatment Not on file documented as of this encounter Visit Diagnoses Diagnosis Premature rupture of membranes in , delivered- Primary documented in this encounter Additional Health Concerns Infection Onset Date Last Indicated Resolved Time MRSA Comment:Resolved per Type and Duration of Precautions Recommended for Selected Infections and Conditions document 2023 update 03/08/2017 03/08/2017 08/04/20 24 11:04 AM CDT documented as of this encounter Care Teams Ethylbenzene Converter Helper Relationship Specialty Start Date End Date Niels Gruber DO PCP - General Internal Medicine 03/08/17 documented as of this encounter
--- OUTSIDE RECORDS SUMMARY | 2025-04-20 15:10 | XMS_ITS | Encounter Summary ---
Author Organization [facility] Address [address] [place] [address] Care Team Providers Care Enterprise Account Manager Name Role Phone Niels Grbuer DO Primary Care Provider Encounter Details Date Type Department Care Team (Late st Contact Info) Description 04/10/2005 Outpatient Historical [facility] EMERGENCY RO[facility] Gisella Foley MD [address] [place] [address] [place] [address] Er, Authorized P NO ADDRESS ON FILE BROKEN TOOTH (Primary Dx) Social History Tobacco Use Types Packs/Day Years Used Date Smoking Tobacco: Never Assessed Comments Unknown Sex and Gender Information Value Date Recorded Sex Assigned at Female 11/07/2024 1:55 AM NURSE INFORMATICS EDUCATOR Legal Sex Female 3:15 AM NURSE INFORMATICS EDUCATOR Gender Identity Female 11/07/2024 1:55 AM NURSE INFORMATICS EDUCATOR Sexual Orientation Straight 11/07/2024 1: 55 AM NURSE INFORMATICS EDUCATOR documented as of this encounter Plan of Treatment Not on file documented as of this encounter Visit Diagnoses Diagnosis Open wound of tooth (broken) (fractured) (due to trauma), without mention of complication- Primary documented in this encounter Additional Health Concerns Infection Onset Date Last Indicated Resolved Time MRSA Comment:Resolved per Type and Duration of Precautions Recommended for Selected Infections and Conditions document 2023 update 03/08/2017 03/08/2017 08/04/20 24 11:04 AM CDT documented as of this encounter Care Teams Enterprise Account Manager Relationship Specialty Start Date End Date Niels Gruber DO PCP - General Internal Medicine 03/08/17 documented as of this encounter
--- OUTSIDE RECORDS SUMMARY | 2025-04-20 15:10 | XMS_ITS | Encounter Summary ---
Author Organization [facility] Address [address] [place] [address] Care Team Providers Care Skills Instructor Name Role Phone Niels Gruber DO Primary Care Provider Encounter Details Date Type Department Care Team (Late st Contact Info) Description 11/24/2003 Outpatient Historical [facility] Maternal and Ground [address] [place] [address] Bebeto Nolan MD [address] [place] [address] [place] [address] Social History Tobacco Use Types Packs/Day Years Used Date Smoking Tobacco: Never Assessed Comments Unknown Sex and Gender Information Value Date Recorded Sex Assigned at Female 11/07/2024 1:55 AM CAMELID FIBER SORTER Legal Sex Female 3:15 AM CAMELID FIBER SORTER Gender Identity Female 11/07/2024 1:55 AM CAMELID FIBER SORTER Sexual Orientation Straight 11/07/2024 1: 55 AM CAMELID FIBER SORTER documented as of this encounter Plan of Treatment Not on file documented as of this encounter Visit Diagnoses Not on filedocumented in this encounter Additional Health Concerns Infection Onset Date Last Indicated Resolved Time MRSA Comment:Resolved per Type and Duration of Precautions Recommended for Selected Infections and Conditions document 2023 update 03/08/2017 03/08/2017 08/04/20 24 11:04 AM CDT documented as of this encounter Care Teams Skills Instructor Relationship Specialty Start Date End Date Niels Gruber DO PCP - General Internal Medicine 03/08/17 documented as of this encounter
--- OUTSIDE RECORDS SUMMARY | 2025-04-20 15:10 | XMS_ITS | Clinical Summary ---
Author Organization [facility] al Address [address] [place] [address] Care Team Providers Care Car Pick Up Driver Name Role Phone Niels Gruber DO Primary Care Provider [phone] Ozzy Valdez MD Unavailable [phone] [phone] Allergies Active Allergy Reactions Criticality Noted Date Comments Penicillins Vomiting,Nausea And Vomiting,Other (See comments),Unknown Low 08/24/2012 Reaction: Medications multivitamin capsule Take 1 capsule by mouth daily Active gabapentin (NEURONTIN) 300 mg capsule Take 1 capsule (300 mg total) by mouth 3 (three) times a day Start with 1 tab qhs x1wk, increase 1 tab BID x1wk, then 1 tab TID 90 capsule 1 4 Active Additional Information Patient not taking.Reported on 12/21/2024 meloxicam (MOBIC) 15 mg tablet TAKE 1 TABLET BY MOUTH DAILY WITH BREAKFAST 30 tablet 5 Active tiZANidine (ZANAFLEX) 4 mg tabletIndicatio ns:Muscle Spasm TAKE 1 TABLET (4 MG TOTAL) BY MOUTH NIGHTLY NEEDED FOR MUSCLE SPASMS 30 tablet 5 Active Active Problems Problem Noted Date Diagnosed Date Cervical radiculopathy 09/09/[address] of the chest 09/01/2024 Alcohol abuse 09/01/2024 Failure of outpatient treatment 09/01/2024 Gastritis 09/01/2024 Major depression 09/01/2024 Cellulitis of right lower extremity 03/08/2017 Pneumonia 03/08/2017 Skin ulcer of right knee, limited to breakdown o f skin 03/08/2017 Tobacco use 03/08/2017 Cervicitis 08/25/2012 Pelvic pain in female 08/25/2012 Surgical History Surgery Date Site/Laterality Comments TUBAL LIGATION 11/18/2020 - 11/17/2021 N/A OVARIAN CYST REMOVAL Medical History Medical History Date Comments Depression Anxiety Social History Tobacco Use Types Packs/Day Years Used Date Smoking Tobacco: Every Day Cigarettes Tobacco Cessation:Ready to Q uit: Not Asked; Counseling Given: Not Answered Alcohol Use Standard Drinks/Week Comments Yes 0 (1 standard drink = 0.6 oz pur e alcohol) occasional AUDIT-C Answer Date Recorded Q1: How often do you have a drink containing alc ohol? Monthly or less 12/08/2024 Q2: How many drinks containi ng alcohol do you have on a typical day when you are drinking? 1 or 2 12/08/2024 Q3: How often do you have si x or more drinks on one occasion? Never 12/08/2024 Hunger Vital Sign Answer Date Recorded Within [...] on file Legal Sex Female 3:05 AM QUARTER SUPERVISOR Gender Identity Female 09/06/2024 12:51 PM CDT Sexual Orientation Straight 09/06/2024 12 :51 PM CDT Obstetrics History Last Filed Vital Signs Vital Sign Reading Time Taken Comments Blood Pressure 116/53 12/21/2024 9:50 AM QUARTER SUPERVISOR Pulse 85 12/21/2024 9:50 AM QUARTER SUPERVISOR Temperature 36.4 C (97.5 F) 12/08/2024 12:52 PM QUARTER SUPERVISOR Respiratory Rate 10 12/08/2024 12:5 2 PM QUARTER SUPERVISOR Oxygen Saturation 100% 12/21/2024 9:50 AM QUARTER SUPERVISOR Inhaled Oxygen Concentration - - Weight 58.4 kg (128 lb 12.8 oz) 12/21/2024 9:50 AM QUARTER SUPERVISOR Height 170.2 cm (5' 7) 12/21/2024 9:50 AM QUARTER SUPERVISOR Body Mass Index 20.17 12/21/2024 9:50 AM QUARTER SUPERVISOR Plan of Treatment Health Maintenance Due Date Last Done Comments Breast Cancer Screening-Mammogram 1983 Cervical Cancer Screening 1983 Depression Screening 1983 Hepatitis C Screening 1983 Varicella Vaccines (1 of 2 - 13+ 2-dose series) 1996 Regular Well Visit/Exam 18-64 2001 Pneumococcal vaccine <65 (1 of 2 - PCV) 2002 DTaP/Tdap/Td Vaccine (5 - Tdap) 04/11/2005 04/10/2005, 12/18/1999, 03/16/1999, Additional history exists Influenza Vaccine (Season Ended) 2025 Hepatitis B Screening Completed 03/16/1999 HPV Vaccines Aged Out No longer eligi ble based on patient's age to complete this topic Goals Goal Patient Goal Type Associated Problems Recent Progress Patient-Stated? Author CCM Chronic Pain Care Plan Chronic Care Management Worsening( 1:01 PM QUARTER SUPERVISOR) No Padmini Yarbrough, RN Note: Problem: Chronic Pain Goals: 1. Minimize further functional decline 2. Maximize quality of life 3. Control pain Strategies: - Activity/exercise program recommendation - Conservative stepwise pain medicine strategy with multi-disciplinary approach - Recommend healthy lifestyle strategies and compensatory methods as needed Insurance [facility] Care Teams Car Pick Up Driver Relationship Specialty Start Date End Date Niels Gruber DO PCP - General 03/01/21 Ozzy Valdez MD [address] [place] [address] Consulting Physician Pain Management 12/21/24
--- OUTSIDE RECORDS SUMMARY | 2025-04-20 15:10 | XMS_ITS | Encounter Summary ---
Author Organization [facility] Address [address] [place] [address] Care Team Providers Care Debt Counselor Name Role Phone Niels Gruber DO Primary Care Provider Encounter Details Date Type Department Care Team (Late st Contact Info) Description 12/28/2005 Outpatient Historical [facility] Irvin Sheth MD [facility] [place] [address] Er, Authorized P NO ADDRESS ON FILE DENTAL CARIES NEC (Primary Dx) Social History Tobacco Use Types Packs/Day Years Used Date Smoking Tobacco: Never Assessed Comments Unknown Sex and Gender Information Value Date Recorded Sex Assigned at Female 11/07/2024 1:55 AM MILL WORK Legal Sex Female 3:15 AM MILL WORK Gender Identity Female 11/07/2024 1:55 AM MILL WORK Sexual Orientation Straight 11/07/2024 1: 55 AM MILL WORK documented as of this encounter Plan of Treatment Not on file documented as of this encounter Visit Diagnoses Diagnosis Other dental caries- Primary documented in this encounter Additional Health Concerns Infection Onset Date Last Indicated Resolved Time MRSA Comment:Resolved per Type and Duration of Precautions Recommended for Selected Infections and Conditions document 2023 update 03/08/2017 03/08/2017 08/04/20 24 11:04 AM CDT documented as of this encounter Care Teams Debt Counselor Relationship Specialty Start Date End Date Niels Gruber DO PCP - General Internal Medicine 03/08/17 documented as of this encounter
--- OUTSIDE RECORDS SUMMARY | 2025-04-20 15:10 | XMS_ITS | Encounter Summary ---
Author Organization [facility] Address [address] [place] [address] Care Team Providers Care Pharmacist Aide Name Role Phone Niels Gruber DO Primary Care Provider Encounter Details Date Type Department Care Team (Late st Contact Info) Description 01/24/2006 Outpatient Historical [facility] You Santiago DO [address] [place] [address] Er, Authorized P NO ADDRESS ON FILE Inflammatory Conditions of Jaw (Primary Dx) Social History Tobacco Use Types Packs/Day Years Used Date Smoking Tobacco: Never Assessed Comments Unknown Sex and Gender Information Value Date Recorded Sex Assigned at Female 11/07/2024 1:55 AM SCREEN PRINTER Legal Sex Female 3:15 AM SCREEN PRINTER Gender Identity Female 11/07/2024 1:55 AM SCREEN PRINTER Sexual Orientation Straight 11/07/2024 1: 55 AM SCREEN PRINTER documented as of this encounter Plan of Treatment Not on file documented as of this encounter Visit Diagnoses Diagnosis Inflammatory conditions of jaw- Primary documented in this encounter Additional Health Concerns Infection Onset Date Last Indicated Resolved Time MRSA Comment:Resolved per Type and Duration of Precautions Recommended for Selected Infections and Conditions document 2023 update 03/08/2017 03/08/2017 08/04/20 24 11:04 AM CDT documented as of this encounter Care Teams Pharmacist Aide Relationship Specialty Start Date End Date Niels Gruber DO PCP - General Internal Medicine 03/08/17 documented as of this encounter
--- OUTSIDE RECORDS SUMMARY | 2025-04-20 15:10 | XMS_ITS | Encounter Summary ---
Author Organization [facility] Address [address] [place] [address] Care Team Providers Care Greenhouse Worker Name Role Phone Niels Gruber DO Primary Care Provider Encounter Details Date Type Department Care Team (Late st Contact Info) Description 03/17/2004 Inpatient Historical HIS PATIENT IN A BED Maverick Oneal MD [address] [facility] [address] [place] [address] Jose Maria Melendez MD [facility] [address] [address] OB INJ PELV ORG NEC-DEL (Primary Dx) Social History Tobacco Use Types Packs/Day Years Used Date Smoking Tobacco: Never Assessed Comments Unknown Sex and Gender Information Value Date Recorded Sex Assigned at Female 11/07/2024 1:55 AM DATA MINER Legal Sex Female 3:15 AM DATA MINER Gender Identity Female 11/07/2024 1:55 AM DATA MINER Sexual Orientation Straight 11/07/2024 1: 55 AM DATA MINER documented as of this encounter Plan of Treatment Not on file documented as of this encounter Visit Diagnoses Diagnosis Other injury to pelvic organs, with delivery- Primary documented in this encounter Additional Health Concerns Infection Onset Date Last Indicated Resolved Time MRSA Comment:Resolved per Type and Duration of Precautions Recommended for Selected Infections and Conditions document 2023 update 03/08/2017 03/08/2017 08/04/20 24 11:04 AM CDT documented as of this encounter Care Teams Greenhouse Worker Relationship Specialty Start Date End Date Niels Gruber DO PCP - General Internal Medicine 03/08/17 documented as of this encounter
--- OUTSIDE RECORDS SUMMARY | 2025-04-20 15:10 | XMS_ITS | Referral Summary ---
Author Organization [facility] al Address [address] [place] [address] Care Team Providers Care Hydraulic Controls Technician Name Role Phone Niels Gruber DO Primary Care Provider [phone]- [phone] Ozzy Valdez MD Unavailable [phone] [phone] Allergies Active Allergy Reactions Criticality Noted Date [...] Cervicitis 08/25/2012 Pelvic pain in female 08/25/2012 Social History Tobacco Use Types Packs/Day Years [...] on file Legal Sex Female 3:05 AM DELIVERY ARCHITECT Gender Identity Female 09/06/2024 12:51 PM CDT Sexual Orientation Straight 09/06/2024 12 :51 PM CDT Last Filed Vital Signs Vital Sign Reading Time Taken Comments Blood Pressure 116/53 12/21/2024 9:50 AM DELIVERY ARCHITECT Pulse 85 12/21/2024 9:50 AM DELIVERY ARCHITECT Temperature 36.4 C (97.5 F) 12/08/2024 12:52 PM DELIVERY ARCHITECT Respiratory Rate 10 12/08/2024 12:5 2 PM DELIVERY ARCHITECT Oxygen Saturation 100% 12/21/2024 9:50 AM DELIVERY ARCHITECT Inhaled Oxygen Concentration - - Weight 58.4 kg (128 lb 12.8 oz) 12/21/2024 9:50 AM DELIVERY ARCHITECT Height 170.2 cm (5' 7) 12/21/2024 9:50 AM DELIVERY ARCHITECT Body Mass Index 20.17 12/21/2024 9:50 AM DELIVERY ARCHITECT Plan of Treatment Not on file Goals Goal Patient Goal Type Associated Problems Recent Progress Patient-Stated? Author CCM Chronic Pain Care Plan Chronic Care Management Worsening( 1:01 PM DELIVERY ARCHITECT) No Padmini Yarbrough, RN Note: Problem: Chronic Pain Goals: 1. Minimize further functional decline 2. Maximize quality of life 3. Control pain Strategies: - Activity/exercise program recommendation - Conservative stepwise pain medicine strategy with multi-disciplinary approach - Recommend healthy lifestyle strategies and compensatory methods as needed Insurance [facility] Care Teams Hydraulic Controls Technician Relationship Specialty Start Date End Date Niels Gruber DO PCP - General 03/01/21 Ozzy Valdez MD [address] [place] [address] Consulting Physician Pain Management 12/21/24
--- OUTSIDE RECORDS SUMMARY | 2025-04-20 15:10 | XMS_ITS | Encounter Summary ---
Author Organization [facility] Address [address] [place] [address] Care Team Providers Care Engineer Soils Name Role Phone Niels Gruber DO Primary Care Provider Encounter Details Date Type Department Care Team (Latest Contact Info) Description 11/24/2003 Outpatient Historical [facility] Jose Maria Melendez MD [facility] [address] [address] PREG COMPL NEC-ANTEPART (Primary Dx) Social History Tobacco Use Types Packs/Day Years Used Date Smoking Tobacco: Never Assessed Comments Unknown Sex and Gender Information Value Date Recorded Sex Assigned at Female 11/07/2024 1:55 AM CONTRACTOR GENERAL BUILDING Legal Sex Female 3:15 AM CONTRACTOR GENERAL BUILDING Gender Identity Female 11/07/2024 1:55 AM CONTRACTOR GENERAL BUILDING Sexual Orientation Straight 11/07/2024 1: 55 AM CONTRACTOR GENERAL BUILDING documented as of this encounter Plan of Treatment Not on file documented as of this encounter Visit Diagnoses Diagnosis Other specified complication, antepartum(646.83)- Primary Other specified complication, antepartum documented in this encounter Additional Health Concerns Infection Onset Date Last Indicated Resolved Time MRSA Comment:Resolved per Type and Duration of Precautions Recommended for Selected Infections and Conditions document 2023 update 03/08/2017 03/08/2017 08/04/20 24 11:04 AM CDT documented as of this encounter Care Teams Engineer Soils Relationship Specialty Start Date End Date Niels Gruber DO PCP - General Internal Medicine 03/08/17 documented as of this encounter
--- OUTSIDE RECORDS SUMMARY | 2025-04-20 15:10 | XMS_ITS | Encounter Summary ---
Author Organization [facility] Address [address] [place] [address] Care Team Providers Care Aircraft Inspection Record Clerk Name Role Phone Niels Gruber DO Primary Care Provider Encounter Details Date Type Department Care Team (Late st Contact Info) Description 02/28/2006 Outpatient Historical [facility] EM[facility] RO[facility] DES Downs Jr., Navin Juarez MD [facility] [place] [address] Er, Authorized P NO ADDRESS ON FILE Acute Gastritis without Mention of Hemorrhage (Primary Dx) Social History Tobacco Use Types Packs/Day Years Used Date Smoking Tobacco: Never Assessed Comments Unknown Sex and Gender Information Value Date Recorded Sex Assigned at Female 11/07/2024 1:55 AM PYROGLAZER Legal Sex Female 3:15 AM PYROGLAZER Gender Identity Female 11/07/2024 1:55 AM PYROGLAZER Sexual Orientation Straight 11/07/2024 1: 55 AM PYROGLAZER documented as of this encounter Plan of Treatment Not on file documented as of this encounter Procedures Procedure Name Priority Date/Time Associated Diagnosis Comments CBC WITH DIFFERENTIAL Routine 02/28/2006 7:25 PM CDT CBC WITH DIFFERENTIAL Routine 02/28/2006 7:25 PM CDT LIPASE Routine 02/28/2006 7:25 PM CDT documented in this encounter Results * (ABNORMAL) CBC WITH DIFFERENTIAL (02/28/2006 7:25 PM CDT) NEUTROPHILS 79(H) 45 - 70 % INTERFAC E SYSTEM LYMPHOCYTES 14(L) 16 - 45 % INTERFAC E SYSTEM MONOCYTES 7 3 - 13 % INTERFACE SYSTEM EOSINOPHILS 1 0 - 7 % INTERFAC E SYSTEM BASOPHILS 0 0 - 2 % INTERFACE SYSTEM NEUTROPHIL ABSOLUTE 9.09(H) 1.90 - 7.00 K/uL INTERFACE SYSTEM LYMPHOCYTE ABSOLUTE 1.62 0.70 - 4.50 K/uL INTERFACE SYSTEM MONOCYTE ABSOLUTE 0.77 0.10 - 1.30 K/uL INTERFACE SYSTEM EOSINOPHIL ABSOLUTE 0.06 0.00 - 0.70 K/uL INTERFACE SYSTEM BASOPHILS ABSOLUTE 0.02 0.00 - 0.20 K/uL INTERFACE SYSTEM 02/28/2006 7:25 PM CDT us Historical Provider HEMATOLOGY ORDERABLES Final Result INTERFACE SYSTEM Refer to clinic/hospital department * (ABNORMAL) CBC WITH DIFFERENTIAL (02/28/2006 7:25 PM CDT) WBC 11.6(H) 4.0 - 9.8 K/uL INTERFACE SYSTEM RBC 4.16 3.90 - 4.90 M/uL INTERFACE SYSTEM HEMOGLOBIN 12.9 11.8 - 14.8 g/dL INTERFACE SYSTEM HEMATOCRIT 37.9 35.5 - 44.0 % INTERFACE SYSTEM MCV 91.1 82.0 - 99.0 fL INTERFACE SYSTEM MCH 31.0 27.2 - 32.6 pg INTERFACE SYSTEM MCHC 34.0 31.5 - 35.5 % INTERFACE SYSTEM RDW 13.5 11.5 - 14.5 % INTERFACE SYSTEM RDW-STDEV 44.7 37.1 - 48.7 fL INTERFACE SYSTEM PLATELETS 234 140 - 350 K/uL INTERFACE SYSTEM MPV 9.8 9.3 - 12.4 fL INTERFACE SYSTEM 02/28/2006 7:25 PM CDT us Historical Provider HEMATOLOGY ORDERABLES Final Result INTERFACE SYSTEM Refer to clinic/hospital department * LIPASE (02/28/2006 7:25 PM CDT) LIPASE 23 13 - 60 U/L INTERFAC E SYSTEM 02/28/2006 7:25 PM CDT us Historical Provider CHEMISTRY ORDERABLES Final R esult INTERFACE SYSTEM Refer to clinic/hospital department documented in this encounter Visit Diagnoses Diagnosis Acute gastritis without mention of hemorrhage- Primary documented in this encounter Additional Health Concerns Infection Onset Date Last Indicated Resolved Time MRSA Comment:Resolved per Type and Duration of Precautions Recommended for Selected Infections and Conditions document 2023 update 03/08/2017 03/08/2017 08/04/20 24 11:04 AM CDT documented as of this encounter Care Teams Aircraft Inspection Record Clerk Relationship Specialty Start Date End Date Niels Gruber DO PCP - General Internal Medicine 03/08/17 documented as of this encounter
--- OUTSIDE RECORDS SUMMARY | 2025-04-20 15:10 | XMS_ITS | Encounter Summary ---
Author Organization [facility] Address [address] [place] [address] Care Team Providers Care Inspector Rag Sorting Name Role Phone Niels Gruber DO Primary Care Provider Encounter Details Date Type Department Care Team (Latest Contact Info) Description 03/07/2001 Outpatient Historical [facility] PATIENT IN A BED Jose Maria Melendez MD [address] [address] Infections of genitourinary tract antepartum (Primary Dx) Social History Tobacco Use Types Packs/Day Years Used Date Smoking Tobacco: Never Assessed Comments Unknown Sex and Gender Information Value Date Recorded Sex Assigned at Female 11/07/2024 1:55 AM HOURLY SHIFT Legal Sex Female 3:15 AM HOURLY SHIFT Gender Identity Female 11/07/2024 1:55 AM HOURLY SHIFT Sexual Orientation Straight 11/07/2024 1: 55 AM HOURLY SHIFT documented as of this encounter Plan of Treatment Not on file documented as of this encounter Visit Diagnoses Diagnosis Infections of genitourinary tract antepartum- Primary documented in this encounter Additional Health Concerns Infection Onset Date Last Indicated Resolved Time MRSA Comment:Resolved per Type and Duration of Precautions Recommended for Selected Infections and Conditions document 2023 update 03/08/2017 03/08/2017 08/04/20 24 11:04 AM CDT documented as of this encounter Care Teams Inspector Rag Sorting Relationship Specialty Start Date End Date Niels Gruber DO PCP - General Internal Medicine 03/08/17 documented as of this encounter
--- OUTSIDE RECORDS SUMMARY | 2025-04-20 15:10 | XMS_ITS | Encounter Summary ---
Author Organization [facility] Address [address] [place] [address] Care Team Providers Care Land Surveying Survey Worker Name Role Phone Niels Gruber DO Primary Care Provider Encounter Details Date Type Department Care Team (Late st Contact Info) Description 08/14/2006 Outpatient Historical [facility] IMG-HOSP Jose Maria Melendez MD [address] [address] Unspecified Symptom Associated with Female Genital Organs (Primary Dx) Social History Tobacco Use Types Packs/Day Years Used Date Smoking Tobacco: Never Assessed Comments Unknown Sex and Gender Information Value Date Recorded Sex Assigned at Female 11/07/2024 1:55 AM HEEL CEMENTER Legal Sex Female 3:15 AM HEEL CEMENTER Gender Identity Female 11/07/2024 1:55 AM HEEL CEMENTER Sexual Orientation Straight 11/07/2024 1: 55 AM HEEL CEMENTER documented as of this encounter Plan of Treatment Not on file documented as of this encounter Visit Diagnoses Diagnosis Unspecified symptom associated with female genital organs- Primary documented in this encounter Additional Health Concerns Infection Onset Date Last Indicated Resolved Time MRSA Comment:Resolved per Type and Duration of Precautions Recommended for Selected Infections and Conditions document 2023 update 03/08/2017 03/08/2017 08/04/20 24 11:04 AM CDT documented as of this encounter Care Teams Land Surveying Survey Worker Relationship Specialty Start Date End Date Niels Gruber DO PCP - General Internal Medicine 03/08/17 documented as of this encounter
--- OUTSIDE RECORDS SUMMARY | 2025-04-20 15:10 | XMS_ITS | Encounter Summary ---
Author Organization [facility] Address [address] [place] [address] Care Team Providers Care Doll Wig Maker Rooted Hair Name Role Phone Niels Gruber DO Primary Care Provider Encounter Details Date Type Department Care Team (Late st Contact Info) Description 09/12/1999 Outpatient Historical [facility]RAY [facility] Jose Maria Melendez MD [address] [address] Unspecified symptom associated with female genital organs (Primary Dx) Social History Tobacco Use Types Packs/Day Years Used Date Smoking Tobacco: Never Assessed Comments Unknown Sex and Gender Information Value Date Recorded Sex Assigned at Female 11/07/2024 1:55 AM ELECTRODE CLEANING MACHINE OPERATOR Legal Sex Female 3:15 AM ELECTRODE CLEANING MACHINE OPERATOR Gender Identity Female 11/07/2024 1:55 AM ELECTRODE CLEANING MACHINE OPERATOR Sexual Orientation Straight 11/07/2024 1: 55 AM ELECTRODE CLEANING MACHINE OPERATOR documented as of this encounter Plan of [...] documented as of this encounter Care Teams Doll Wig Maker Rooted Hair Relationship Specialty Start Date End Date Niels Gruber DO PCP - General Internal Medicine 03/08/17 documented as of this encounter
--- OUTSIDE RECORDS SUMMARY | 2025-04-20 15:10 | XMS_ITS | Clinical Summary ---
Author Organization [facility] Address [address] [place] [address] Phone Care Team Providers Care Paint Tinter Name Role Phone CaspennyNielsaileen SCHULER Primary Care Provider Allergies Active Allergy Reactions Criticality Noted Date Comments Penicillins Vomiting 04/25/2022 Medications HYDROcodone-sen taminophen (NORCO) 5-325 MG TabletIndicatio ns:Acute abdominal pain in right lower quadrant Take 1-2 Tablets by mouth every 6 hours as needed for Moderate or more severe pain. 10 Tablet 04/25/2022 Active Social History Tobacco Use Types Packs/Day Years Used Date Smoking Tobacco: Every Day Smokeless Tobacco: Never Comments No Sex and Gender Information Value Date Recorded Sex Assigned at Not on file Legal Sex Female 7:05 PM COMPLIANCE ANALYST Gender Identity Not on file Sexual Orientation Not on file Last Filed Vital Signs Vital Sign Reading Time Taken Comments Blood Pressure 129/80 04/25/2022 5:30 AM CDT Pulse 68 04/25/2022 5:45 AM CDT Temperature 36.6 C (97.9 F) 04/25/2022 2:22 AM CDT Respiratory Rate 18 04/25/2022 2:22 AM CDT Oxygen Saturation 100% 04/25/2022 5:45 AM CDT Inhaled Oxygen Concentration - - Weight 51.7 kg (114 lb) 04/25/2022 2:22 AM CDT Height 167.6 cm (5' 6) 04/25/2022 2:22 AM CDT Body Mass Index 18.4 04/25/2022 2:22 AM CDT Plan of Treatment Health Maintenance Due Date Last Done Comments Hepatitis C Virus (HCV) Screening 1983 TdaP Immunization 1983 Hepatitis B Immunization (2 of 3 - 3-dose series) 04/13/1999 03/16/1999 SARS-COV-2 Immunization (1 - season) 2024 Influenza Immunization (Season Ended) 2025 Respiratory Syncytial Virus (RSV) Immunization (Adult) (1 - 1-dose 75+ series) 2058 DTaP/Tdap/Td Immunization Discontinued 1998, 07/17/1989, 07/14/1984, Additional history exists Human Papillomavirus (HPV) Immunization Aged Out No longer eligible based on patient's age to complete this topic Meningococcal Immunization (ACWY) Aged Out No longer eligible based on patient's age to complete this topic Pneumococcal Immunization Combined Aged Out No longer eligible based on patient's age to complete this topic Rotavirus Immunization Aged Out No lo nger eligible based on patient's age to complete this topic Insurance [place]ID [place] Care Teams Paint Tinter Relationship Specialty Start Date End Date Niels Gruber DO [address] [facility] [place] [id number] PCP - General Internal Medicine 04/25/22
== END 2025-04-20 15:05 | disposition home or self-care (01) ==
PROVIDERS: PCP Internal Medicine; Visit Provider Clinical Nurse Specialist
DX: M25.561 Pain in right knee (principal)
CPT/HCPCS: 73562